=== PATIENT | female | born 1940 | race Caucasian/White ===

== ENCOUNTER 2016-12-30 16:34 | Emergency (ER) | payer OTHER ==
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
--- NOTE | 2016-12-30 16:51 | ED ORDER SUMMARY ---
..... Patient: KAREEM NOBLE OrderSheet [facility] VisitID: [id number] [address] [place] [address] 76y, F Registration Date/Time: 12/30/2016 ORDER SHEET Weight: 36.2 kg (estimated) Allergies: Codeine, Cymbalta, Duloxetine, Flu Virus Vaccine, Latex, Remeron, Shellfish-derived Products GENERAL ORDERS: Suture Set-up: (16:51 12/30/2016 HBivens A.R.N.P.) (17:46 Greta R.N.) MEDICATION ORDERS: Tdap IM 0.5 mL (NOW, per protocol) (16:51 12/30/2016 HBivens A.R.N.P.) (Ack 17:42 AMcKenna) (18:04 AMcKenna) IV FLUIDS: ORDER SHEET NOTES: [Electronically signed by Linette Jacobs RAhmetNAhmet (18:31 12/30/2016)] [Electronically signed by Lorena Haile.R.N.P. (19:23 12/30/2016)] [Electronically locked/signed by Linette Jacobs R.N. (18:31 12/30/2016)]
--- NOTE | 2016-12-30 16:51 | ED ORDER SUMMARY ---
..... Patient: KAREEM NOBLE OrderSheet [facility] VisitID: [id number] [address] [place] [address] 76y, F Registration Date/Time: 12/30/2016 ORDER SHEET Weight: 36.2 kg (estimated) Allergies: Codeine, Cymbalta, Duloxetine, Flu Virus Vaccine, Latex, Remeron, Shellfish-derived Products GENERAL ORDERS: Suture Set-up: (16:51 12/30/2016 HBivens A.R.N.P.) (17:46 Greta R.N.) MEDICATION ORDERS: Tdap IM 0.5 mL (NOW, per protocol) (16:51 12/30/2016 HBivens A.R.N.P.) (Ack 17:42 AMcKenna) (18:04 AMcKenna) IV FLUIDS: ORDER SHEET NOTES: [Electronically signed by Linette Jacobs RAhmetNAhmet (18:31 12/30/2016)] [Electronically signed by Lorena Haile.R.N.P. (19:23 12/30/2016)] [Electronically locked/signed by Linette Jacobs R.N. (18:31 12/30/2016)]
--- NOTE | 2016-12-30 19:23 | ED MED RECONCILIATION SUMMARY ---
Patient: KAREEM NOBLE Medication Reconciliation Report [facility] VisitID: [id number] [address] [place] [address] 76y, F Registration Date/Time: 12/30/2016 Weight: 36.2 kg Height/Length: 61 in. BMI: 15.1 ALLERGIES: Codeine, Cymbalta, Duloxetine, Flu Virus Vaccine, Latex, Remeron, Shellfish-derived Products The patient's Home Medications are listed below: THE FOLLOWING MEDICATIONS NEED TO BE RECONCILED: Allopurinol Oral AmLODIPine Besylate Oral Cavilon Durable Barrier External Citalopram Hydrobromide Oral Docusate Sodium Oral Haloperidol Oral Lisinopril Oral Melatonin Oral Vitamin D3 Oral The source(s) of the original Home Medication information: Not obtained. The following Medications were given to the patient in the Emergency Department: TDAP [IM] IM 0.5 mL, administered: 12/30/2016 5:58:00 PM The following Medications were prescribed to the patient: None.
--- NOTE | 2016-12-30 19:23 | ED DISCHARGE INSTRUCTIONS ---
Patient: KAREEM NOBLE General Instructions [facility] VisitID: [id number] [place] [address] 76y, F Registration Date/Time: 12/30/2016 Single deep laceration to the chin.Treatment of laceration not delayed. No infection or foreign body present. Single superficial abrasion to the right knee. Fall from pushing. INSTRUCTIONS Warnings: TETANUS: You were given a tetanus shot during your visit. Make a note for future reference. GENERAL WARNINGS: Return or contact your physician immediately if your condition worsens or changes unexpectedly, if not improving as expected, or if other problems arise. chest pain, trouble breathing, abdominal pain. Follow-up: Follow up with your doctor in about two days as needed and for wound check. Call for an appointment. Summary of care provided to patient. Understanding of the discharge instructions verbalized by patient. ADDITIONAL INFORMATION Mechanical Fall You have had a fall today. It appears that the cause is mechanical. That means that you slipped, tripped or lost your balance. If your fall had been due to fainting or a seizure, further tests would be required. Home Care: Rest today and resume your normal activities when you are feeling back to normal. If you were injured during the fall, follow the advice from your doctor regarding care of your injury. You may use acetaminophen (Tylenol) or ibuprofen (Motrin, Advil) to control pain, unless another pain medicine was prescribed. [NOTE: If you have chronic liver or kidney disease or ever had a stomach ulcer or GI bleeding, talk with your doctor before using these medicines.] Fall Prevention: Was there anything that caused your fall that can be fixed, removed, or replaced? Make your home safe by keeping walkways clear of objects you may trip over. Use non-slip pads under rugs. Do not walk in poorly lit areas. Do not stand on chairs or wobbly ladders. Use caution when reaching overhead or looking upward. This position can cause a loss of balance. Be sure your shoes fit properly, have non-slip bottoms and are in good condition. Be cautious when going up and down curbs, and walking on uneven sidewalks. If your balance is poor, consider using a cane or walker. Stay as active as you can. Balance, flexibility, strength, and endurance all come from exercise. They all play a role in preventing falls. Follow Up with your doctor or as advised by our staff. Get Prompt Medical Attention if any of the following occur: Repeated mechanical falls, or unexplained falls Dizziness, fainting or seizure Severe headache Chest pain or shortness of breath Palpitations (very rapid or very slow or irregular heartbeat) Blood in vomit, stools (black or red color) Weakness of an arm or leg or one side of the face Difficulty with speech or vision Laceration, Face (Suture Or Tape) Alaceration is a cut through the skin. This will require stitches if it is deep. Minor cuts may be treated with surgical tape. Home care The following guidelines will help you care for your laceration at home: If a bandage was applied and it becomes wet or dirty, replace it. Otherwise, leave it in place for the first 24 hours, then change it once a day or as directed. If sutures were used, clean the wound daily: After removing the bandage, wash the area with soap and water. Use a wet cotton swab to loosen and remove any blood or crust that forms. After cleaning, keep the wound clean and dry. Talk with your doctor before applying any antibiotic ointment to the wound. Reapply a fresh bandage. You may remove the bandage to shower as usual after the first 24 hours, but do not soak the area in water (no swimming) until the sutures are removed. If surgical tape was used, keep the area clean and dry. If it becomes wet, blot it dry with a towel. The doctor may prescribe an antibiotic cream or ointment to prevent infection. Do not stop taking this medication until you have have finished the prescribed course or the doctor tells you to stop. The doctor may also prescribe medications for pain. Follow the doctor's instructions for taking these medications.If you have chronic liver or kidney disease or ever had a stomach ulcer or GI bleeding, talk with your doctor before using these medicines. Follow-up care Follow up with your health care provider. Most facial cuts heal in five days with no problem. However, even with proper treatment, a wound infection sometimes occurs. Therefore, check the wound daily for the warning signs listed below. Stitches should not be left in the face for more thanfivedays; otherwise, permanent stitch olson may form. If surgical tape closures were used, you may remove them yourself afterfivedays, if they have not fallen off by then. When to seek medical care Get prompt medical attention if any of these occur: Increasing pain in the wound Redness, swelling, or pus coming from the wound If sutures come apart or fall out before 5 days If the surgical tape closures fall off before 5 days, or the wound edges reopen Fever of 100.4F (38C) or higher, or as directed by your health care provider Bleeding not controlled by direct pressure Laceration, Chin, Skin Glue (Child) The skin of the chin may be accidentally cut or torn by a fall, a fingernail, or a sharpobject. This is called a chin laceration. Symptoms may include local redness, swelling, and bleeding. If chin lacerations are shallow, they may heal well with skin glue. After first applying pressure to stop any bleeding, the area is cleaned with soap and warm water. Skin glue is used on lacerations that have smooth edges and are not infected. Skin glue causes less scarring and is less painful than stitches. However, a lower layer of skin may be closed with sutures before skin glue is applied. The skin glue closes the tear within a few minutes. It also provides a water-resistant covering that allows for fast healing. No bandage is required. Skin glue peels off on its own within 5 to 10 days. Depending upon the cause of the laceration,a tetanus shot may be required. Home Care Medications: The doctor may prescribe an oral antibiotic to prevent infection. Follow the doctors instructions for using it. Do not stop giving your child this medication until you have finished the prescribed course or the gerard doctor tells you to stop. General Care: Follow your doctors instructions on how to care for the laceration. Wash your hands with soap and warm water before and after caring for your child to prevent infection. Avoid soaking the laceration in water. Have your child take a shower rather than a bath. Use a clean cloth to gently pat the area dry when it gets wet. Avoid using lotions or ointments on the laceration. They may cause the adhesive to peel off. Tell your child not to scratch or pick at the area. Monitor the laceration for signs of infection (see below). Follow Up as advised by the doctor or our staff. Special Notes To Parents: If the adhesive does not peel off after 10 days, apply petroleum jelly or an ointment to the area. Get Prompt Medical Attention if any of the following occurs: Fever greater than 100.4F (38C) Any bleeding from the wound Signs of infection, such as redness, swelling, or foul-smelling drainage Abrasions Abrasions are skin scrapes. Their treatment depends on how large and deep the abrasion is. Home Care: If you were given a bandage, change it once a day. If your bandage sticks to the wound, soak it in warm water until it loosens. Wash the area with soap and water to remove all the cream/ointment. You may do this in a sink, under a tub faucet or shower. Rinse off the soap and pat dry with a clean towel. Reapply cream/ointment according to your doctor's instructions. This will prevent infection and help prevent the bandage from sticking. Cover the wound with a fresh non-stick bandage (Telfa). Repeat steps 1 to 4 daily, or as directed by your doctor. If the bandage becomes wet or dirty, change it as soon as possible. You may use acetaminophen (Tylenol) or ibuprofen (Motrin, Advil) to control pain, unless another pain medicine was prescribed. [ NOTE : If you have chronic liver or kidney disease or ever had a stomach ulcer or GI bleeding, talk with your doctor before using these medicines.] Do not use ibuprofen in children under six months of age. Follow Up with your physician or this facility as directed by our staff. Most skin wounds heal within ten days. However, an infection may occur despite proper treatment. Therefore, look for the early signs of infection listed below. Get Prompt Medical Attention if any of the following occur: Increasing pain in the wound Increasing redness or swelling Pus coming from the wound Fever of 100.4F (38C) or higher, or as directed by your healthcare provider Diphtheria Toxoid Adsorbed, Pertussis Vaccine, Acellular (Adsorbed), Tetanus Toxoid, Adsorbed Suspension for injection What is this medicine? DIPHTHERIA and TETANUS TOXOIDS; PERTUSSIS VACCINE (dif THEER ee uh and TET n us TOK soids; per TUS iss vak SEEN) is used to prevent diphtheria, tetanus, and pertussis infections. How should I use this medicine? This vaccine is for injection into a muscle. It is given by a health career services assistant. A copy of Vaccine Information Statements will be given before each vaccination. Read this sheet carefully each time. The sheet may change frequently. Talk to your b2b appointment setter regarding the use of this vaccine in children. While the DTP vaccine may be given to children ages 6 weeks to 7 years and the Tdap vaccine may be given to children at least 10 years old, precautions do apply. What side effects may I notice from receiving this medicine? Side effects that you should report to your doctor or health career services assistant as soon as possible: allergic reactions like skin rash, itching or hives, swelling of the face, lips, or tongue breathing problems fever of 103 degrees F or more flu-like symptoms inconsolable crying infection pain, tingling, numbness in the hands or feet seizures swelling of arm or leg that was injected unusually weak or tired Side effects that usually do not require immediate medical attention (report these side effects to your doctor or health career services assistant if they continue or are bothersome): fussy, irritable loss of appetite fever of 102 degrees F or less pain, tenderness, redness, swelling, or a 'knot' at site where injected vomiting What may interact with this medicine? immune globulin medicines that suppress your immune function like adalimumab, anakinra, infliximab medicines to treat cancer medicines that treat or prevent blood clots like warfarin, enoxaparin, and dalteparin steroid medicines like prednisone or cortisone What if I miss a dose? It is important not to miss your dose. Call your doctor or health career services assistant if you are unable to keep an appointment. Where should I keep my medicine? This drug is given in a hospital or clinic and will not be stored at home. What should I tell my health care provider before I take this medicine? They need to know if you have any of these conditions: blood disorders like hemophilia fever or infection immune system problems neurologic disease seizures an unusual or allergic reaction to vaccines, thimerosal, latex, other medicines, foods, dyes, or preservatives or trying to get breast-feeding What should I watch for while using this medicine? See your health care provider for all shots of this vaccine as directed. To have protection from infection, you must have 3 shots of this vaccine plus boosters as needed. Tell your doctor right away if you have any serious or unusual side effects after getting this vaccine. You have been given the following additional information: Fall, Mechanical Laceration, Face (Suture Or Tape) Laceration, Chin, Skin Glue (Child) Abrasion Diphtheria Toxoid Adsorbed, Pertussis Vaccine, Acellular (Adsorbed), Tetanus Toxoid, Adsorbed Suspension for injection (Electronically signed by Lorena Haile A.R.N.P. 12/30/2016 19:23)
--- NOTE | 2016-12-30 19:23 | ED MAR SUMMARY ---
..... Medication Administration Record [facility] [address] [place] [address] Patient: KAREEM NOBLE Visit ID: [id number] 76y, F Weight: 36.2 kg Height/Length: 61 in BMI: 15.1 ALLERGIES: Shellfish-derived Products, Remeron, Latex, Flu Virus Vaccine, Duloxetine, Cymbalta, Codeine Given 17:58 12/30/2016 William, Medication Administered: TDAP [IM], Dose: 0.5 mL IM. Medication Ordered: Tdap IM 0.5 mL (NOW, per protocol).
--- NOTE | 2016-12-30 19:23 | ED MAR SUMMARY ---
..... Medication Administration Record [facility] [address] [place] [address] Patient: KAREEM NOBLE Visit ID: [id number] 76y, F Weight: 36.2 kg Height/Length: 61 in BMI: 15.1 ALLERGIES: Shellfish-derived Products, Remeron, Latex, Flu Virus Vaccine, Duloxetine, Cymbalta, Codeine Given 17:58 12/30/2016 William, Medication Administered: TDAP [IM], Dose: 0.5 mL IM. Medication Ordered: Tdap IM 0.5 mL (NOW, per protocol).
--- NOTE | 2016-12-30 19:23 | ED MED RECONCILIATION SUMMARY ---
Patient: KAREEM NOBLE Medication Reconciliation Report Merged With [facility] VisitID: [id number] [address] [place] [address] 76y, F Registration Date/Time: 12/30/2016 Weight: 36.2 kg Height/Length: 61 in. BMI: 15.1 ALLERGIES: Codeine, Cymbalta, Duloxetine, Flu Virus Vaccine, Latex, Remeron, Shellfish-derived Products The patient's Home Medications are listed below: THE FOLLOWING MEDICATIONS NEED TO BE RECONCILED: Allopurinol Oral AmLODIPine Besylate Oral Cavilon Durable Barrier External Citalopram Hydrobromide Oral Docusate Sodium Oral Haloperidol Oral Lisinopril Oral Melatonin Oral Vitamin D3 Oral The source(s) of the original Home Medication information: Not obtained. The following Medications were given to the patient in the Emergency Department: TDAP [IM] IM 0.5 mL, administered: 12/30/2016 5:58:00 PM The following Medications were prescribed to the patient: None.
== END 2016-12-30 18:30 | disposition home or self-care (01) ==
LOC: ED SRH 16:34
DX: S01.81XA Laceration without foreign body of other part of head, initial encounter (principal); S80.211A Abrasion, right knee, initial encounter; Z23 Encounter for immunization; W03.XXXA Other fall on same level due to collision with another person, initial encounter; Y92.128 Other place in nursing home as the place of occurrence of the external cause; Y93.89 Activity, other specified; Y99.8 Other external cause status; Z88.5 Allergy status to narcotic agent; I10 Essential (primary) hypertension; F03.90 Unspecified dementia, unspecified severity, without behavioral disturbance, psychotic disturbance, mood disturbance, and anxiety; Z88.8 Allergy status to other drugs, medicaments and biological substances; Z91.040 Latex allergy status; Z91.013 Allergy to seafood; Z79.899 Other long term (current) drug therapy